=== PATIENT | female | born 1965 | race Caucasian/White ===

== ENCOUNTER → 2017-12-16 | Outpatient (CLI) | payer BC ==
[~2017-12-16] MED LIST: AMLODIPINE BESY10 MG PO; CHLORTHALIDONE25 MG PO; COZAAR 25 MG TA25 M2 PO; NORVASC10 MG PO; POTASSIUM20 PO
[2017-12-16 17:35] LABS: ABSOLUTE LYMPHOCYTES 1.4 thou/uL (0.8-5.3); HEMOGLOBIN 15.5 gm/dL (12.0-15.0); NUCLEATED RBCS 0 /100WBC; RBC 5.07 mil/uL (4.20-5.00)
[2017-12-16 17:36] LABS: ABSOLUTE BASOPHILS 0.1 thou/uL (0.0-0.2); ABSOLUTE EOSINOPHILS 0.3 thou/uL (0.0-0.7); ABSOLUTE MONOCYTES 0.8 thou/uL (0.0-1.2); ABSOLUTE NEUTROPHILS 5.6 thou/uL (1.6-8.1); BASOPHILS 1.1 %; EOSINOPHILS 3.9 %; HEMATOCRIT 47.9 % (37.0-47.0); LYMPHOCYTES 16.5 %; MCH 30.5 pg (26.0-34.0); MCHC 32.3 g/dL (28.0-37.0); MCV 94.4 fL (80.0-100.0); MONOCYTES 9.7 %; MPV 7.4 fl. (7.2-11.1); PLATELET COUNT* 267 thou/uL (150-400); POLYS 68.8 %; RDW-CV 12.9 % (10.5-14.5); WBC 8.2 thou/uL (4.0-11.0)
== END ==
LOC: M.LAB 17:14
PROVIDERS: Family Medicine
DX: D64.9 Anemia, unspecified (principal)

== ENCOUNTER → 2018-06-11 | Outpatient (CLI) | payer BC | LOC: M.ULTRA 09:45 | DX: I10 Essential (primary) hypertension (principal); N28.89 Other specified disorders of kidney and ureter ==

== ENCOUNTER → 2018-07-02 | Outpatient (CLI) | payer BC ==
[2018-07-02 10:17] LABS: CALCIUM 9.1 mg/dL (8.5-10.1); CREATININE 0.8 mg/dL (0.6-1.3)
[2018-07-02 10:46] LABS: POTASSIUM 2.7 mmol/L (3.5-5.1)
== END ==
LOC: M.LAB 09:27
PROVIDERS: Nurse Practitioner
DX: I10 Essential (primary) hypertension (principal)

== ENCOUNTER → 2018-07-07 | Outpatient (CLI) | payer BC ==
[2018-07-07 09:44] LABS: CREATININE 0.7 mg/dL (0.6-1.3); POTASSIUM 3.3 mmol/L (3.5-5.1)
== END ==
LOC: M.LAB 09:16
PROVIDERS: Nurse Practitioner
DX: E87.6 Hypokalemia (principal); I10 Essential (primary) hypertension

== ENCOUNTER 2018-08-11 12:58 | Emergency (ER) | payer BC ==
[~2018-08-11] VITALS: Ht 162.6 cm; Wt 97.5 kg
[2018-08-11] MEDS ORDERED: POTASSIUM20 PO (13:10)
[2018-08-11] MEDS ORDERED: CHLORTHALIDONE25 MG PO (13:10)
[2018-08-11] MEDS ORDERED: AMLODIPINE BESY10 MG PO (13:10)
[2018-08-11] MEDS ORDERED: COZAAR 25 MG TA25 M2 PO (13:10)
[2018-08-11 13:35] LABS: ABSOLUTE EOSINOPHILS 0.1 thou/uL (0.0-0.7); ABSOLUTE LYMPHOCYTES 1.1 thou/uL (0.8-5.3); ABSOLUTE MONOCYTES 0.6 thou/uL (0.0-1.2); ABSOLUTE NEUTROPHILS 4.5 thou/uL (1.6-8.1); BASOPHILS 0.7 %; EOSINOPHILS 1.6 %; HEMATOCRIT 43.4 % (37.0-47.0); LYMPHOCYTES 17.1 %; MCH 30.2 pg (26.0-34.0); MCHC 34.5 g/dL (28.0-37.0); MCV 87.6 fL (80.0-100.0); MONOCYTES 10.1 %; MPV 7.7 fl. (7.2-11.1); NUCLEATED RBCS 0 /100WBC; PLATELET COUNT* 266 thou/uL (150-400); POLYS 70.5 %; RBC 4.95 mil/uL (4.20-5.00); RDW-CV 13.3 % (10.5-14.5); WBC 6.3 thou/uL (4.0-11.0)
[2018-08-11 13:45] LABS: ANION GAP 7 mmol/L (7-16); BUN 15 mg/dL (7-18); CALCIUM 8.7 mg/dL (8.5-10.1); CHLORIDE 100 mmol/L (98-107); CO2 31 mmol/L (21-32); CREATININE 0.7 mg/dL (0.6-1.3); GLUCOSE 98 mg/dL (70-99); SODIUM 138 mmol/L (136-145)
[2018-08-11 13:49] LABS: POTASSIUM 2.9 mmol/L (3.5-5.1)
[2018-08-11 14:00] LABS: ALBUMIN 3.4 g/dL (3.4-5.0); ALKALINE PHOSPHATASE 51 U/L (46-116); NT-PRO BRAIN NAT PEPTIDE 33 pg/mL (<300); SGOT 18 U/L (15-37); SGPT 31 U/L (30-65); TOTAL BILIRUBIN 0.4 mg/dL (<0.1-1.0); TOTAL PROTEIN 7.1 g/dL (6.4-8.2); TROPONIN-I LEVEL <0.06 ng/mL (<0.06)
[2018-08-11 14:30] LABS: URINE BILIRUBIN NEGATIVE (Negative); URINE BLOOD NEGATIVE (Negative); URINE CLARITY CLEAR; URINE COLOR YELLOW; URINE GLUCOSE-RANDOM NEGATIVE (Negative); URINE KETONES NEGATIVE (Negative); URINE LEUKOCYTES NEGATIVE (Negative); URINE NITRITE NEGATIVE (Negative); URINE PROTEIN NEGATIVE (Negative); URINE SPECIFIC GRAVITY 1.015 (1.005-1.030); URINE UROBILINOGEN 0.2 E.U./dl (0.2-1.0)
[2018-08-11] MEDS ORDERED: NORVASC10 MG PO (14:45)
[2018-08-11 14:58] VITALS: BP 146/80
--- NOTE | 2018-08-11 18:05 | EKG ---
[place] [address] ELECTROCARDIOGRAM REPORT Name: MARY RENO Room: [facility]#: [id number] Admission: 08/11/18 Attend Phys: Discharge: 08/11/18 Date of : 61 Report #: [id number] THIS REPORT FOR: //name// [facility] ED Test Date: 2018-08-11 Test Time: 13:32:10 Pat Name: MARY RENO Department: Room: Gender: F [id number] Developer: Quin PERALTA : 1965 Requested By: Noni Mccormack Order Number: [id number] MD: Pako Peace Measurements Intervals [place] Rate: 53 P: 48 RI: 144 QRS: 56 QRSD: 112 T: 54 QT: 433 QTc: 407 Interpretive Statements Sinus bradycardia Borderline intraventricular conduction delay Compared to ECG 04/21/2009 17:50:34 rate slowed Electronically Signed On 08-11-2018 18:05:08 CDT by Pako Peace [email or web address] <ELECTRONICALLY SIGNED> By: Pako Peace MD, [facility] 08/11/18 1805 1332 133 Pako Peace MD, FAC /EPI
== END 2018-08-11 15:10 | disposition home or self-care (01) ==
LOC: M.ERS 12:58
PROVIDERS: Nurse Practitioner Family
DX: I10 Essential (primary) hypertension (principal); E87.6 Hypokalemia; Z88.1 Allergy status to other antibiotic agents; Z88.0 Allergy status to penicillin; Z88.5 Allergy status to narcotic agent